=== PATIENT | female | born 1975 | race Caucasian/White ===

== ENCOUNTER 2017-07-13 11:43 | Emergency (ER) | payer BC ==
--- NOTE | 2017-07-13 12:08 | ERNOTE ---
Time Seen by Provider: 07/13/17 11:57 Stated Complaint: VOMITING, DIARRHEA Presenting Symptoms:: cough Source: patient Exam Limitations: no limitations Immunizations: IMMUNIZATION HX Immunizations Up to Date Yes History of Influenza Vaccine No Hx Pneumococcal Vaccination No Allergies/Adverse Reactions: Allergies No Known Allergies Allergy (Verified 07/13/17 11:59) Home Medications: HOME MEDICATIONS Azithromycin [Zithromax] 250 mg PO DAILY #6 tablet 07/13/17 [Last Taken Unknown] Benzonatate [Tessalon Perle] 100 mg PO TID #20 capsule 07/13/17 [Last Taken Unknown] Ferrous Sulfate 325 mg PO TID 07/13/17 [Last Taken Unknown] Omeprazole [Prilosec] 20 mg PO BID 07/13/17 [Last Taken Unknown] Sucralfate [Carafate] 1 gm PO QID 07/13/17 [Last Taken Unknown] - History of Present Ilness Narrative: Patient has not only had cough for 3 days, she has also been having intermittent nausea vomiting and diarrhea as well. Patient was on her way to work and just thought perhaps she should get checked out to make sure that everything is okay because she had some pretty severe coughing last night. Patient is just getting over pneumonia that she contracted approximately 2 months ago. Timing: intermittent Severity: moderate Frequency/Possible Cause: Reports: occasional episodes Modifying Factors - Improves: Reports: nothing Modifying Factors - Worsens: Reports: nothing Associated Symptoms: Reports: cough Prior Treatment: Reports: recently seen, treated by physician Review of Systems - Review of Systems Constitutional: Present: See HPI EYE: Present: no symptoms reported ENT: Present: no symptoms reported Respiratory: Present: cough Cardiology: Present: no symptoms reported Gastrointestinal/Abdominal: Present: See HPI Genitourinary: Present: no symptoms reported Musculoskeletal: Present: no symptoms reported Skin: Present: no symptoms reported Neurological: Present: no symptoms reported Endocrine: Present: no symptoms reported Hematologic/Lymphatic: Present: no symptoms reported Psych: Present: no symptoms reported - Patient's Past Medical History Patient History - Medical: Anemia, GERD Patient History - Cardiac/Respiratory: Pneumonia Patient History - Cancer: No Hx of Cancer Patient History - Surgical Procedures: Cholecystectomy, Tubal Ligation Patient History - Other: None LMP (females 10-50): 1 month - Social History Living Situations: home Abuse History: No History of abuse Psych History: No pertinent hx Smoking Status: Former smoker Alcohol Use: none Drug Use: none - Immunizations Immunizations Up to Date: Yes Hx Pneumococcal Vaccination: No History of Influenza Vaccine: No Physical Exam - Physical Exam General Appearance: Present: wd/wn, alert, mild distress Head Exam: Present: normal inspection, no evidence of injury Eye Exam: Normal inspection: bilateral, PERRL: bilateral Ears, Nose, Throat: Present: normal ENT inspection, H, normal pharynx Neck: Present: normal inspection, nontender Respiratory: Present: no respiratory distress, no accessory muscle use, chest nontender, other - and course breath sounds Cardiovascular/Chest: Present: regular rate, rhythm, no murmur, normal peripheral pulses Gastrointestinal/Abdominal: Present: normal bowel sounds, nondistended, soft, no organomegaly, tenderness - mild epigastric Rectal Exam: Present: deferred Back Exam: Present: normal inspection, normal range of motion Extremity Exam: Present: normal inspection, non-tender, no edema, normal range of motion Neurological Exam: Present: alert, oriented, normal mood/affect Skin Exam: Present: normal color, warm/dry Lymphatic Exam: Present: no adenopathy ED Progress - Results and Orders Patient's Lab Results:: I have reviewed the patient's lab results. - Vital Signs Patient's Vital Signs:: I have reviewed the patient's vital signs. Vital Signs: Vital Signs 07/13/17 11:48 Temperature 36.0 C L Pulse Rate 81 Respiratory 15 Rate Blood Pressure 151/98 O2 Sat by Pulse 100 Oximetry - EKG EKG: NSR EKG read: Reviewed by me - X-Ray X-Ray #1 X-Ray: chest Interpretation: Reviewed by me - Progress/Reassessment Chief Complaint: Cough Plan - Plan Plan: The flu test was negative and the chest x-ray was unremarkable, I suspect the patient has no respiratory infection and will benefit from a Z-Renan and Tessalon Perles. We will give her the day off from work to help recover. Departure Clinical Impression: Upper respiratory infection Qualifiers: URI type: unspecified URI Qualified Code(s): J06.9 - Acute upper respiratory infection, unspecified - Departure Disposition: Home self-care Condition: Good Instructions: Upper Respiratory Infection, Adult, [id number] Prescriptions: Azithromycin [Zithromax] 250 mg PO DAILY #6 tablet Benzonatate [Tessalon Perle] 100 mg PO TID #20 capsule
[2017-07-13] MEDS ORDERED: KETOROLAC TROMETHAMINE 60 MG/2 ML VIAL IM ONE (12:27)
[2017-07-13] MEDS ORDERED: ONDANSETRON 4 MG TAB.RAPDIS ONE (12:28)
[2017-07-13] MEDS: ONDANSETRON 4 MG TAB.RAPDIS PO ONE (12:32)
[2017-07-13] MEDS: KETOROLAC TROMETHAMINE 60 MG/2 ML VIAL IM ONE (12:33)
[2017-07-13] MEDS ORDERED: BENZONATATE 100 MG CAPSULE PO ONE (14:24)
[2017-07-13] MEDS: BENZONATATE 100 MG CAPSULE PO ONE (14:26)
[2017-07-13 14:41] VITALS: BP 138/74
== END 2017-07-13 14:25 | disposition home or self-care (01) ==
LOC: ER 11:43
DX: J06.9 Acute upper respiratory infection, unspecified (principal); Z87.891 Personal history of nicotine dependence